=== PATIENT | female | born 1960 ===

== ENCOUNTER 2020-10-30 06:42 | Day surgery (SDC) | payer OTHER ==
[~2020-10-30 06:42] MED LIST: SYNTHROID50 MCG PO
== END 2020-10-30 16:35 | disposition home or self-care (01) ==
LOC: CIR.AMB 06:42
PROVIDERS: ATTEND Obstetrics & Gynecology Maternal & Fetal Medicine
DX: N84.0 Polyp of corpus uteri (principal); Z20.822 Contact with and (suspected) exposure to COVID-19